=== PATIENT | male | born 1970 | race Caucasian/White ===

== ENCOUNTER 2022-09-02 10:15 | Outpatient (RCR) | payer OTHER, SELFPAY ==
[2022-08-27 10:44] VITALS: BP 102/64; PULSE 76; TEMP 37
[2022-08-27 10:48] VITALS: BMI 34.4
--- NOTE | 2022-08-27 11:51 | HO.PS.ADMBH ---
[facility] Date of Service: 08/27/22 Chief Complaint: MDD,PTSD Sources of Information: patient interviewed, chart reviewed and crisis/core team assessment reviewed Additional Sources of Information: [facility] paperwork reviewed [facility] Medical Problems Affecting Mental Status: No Narrative: Patient is a 51-year-old male, referred to partial hospitalization program as a step-down from the [facility] PTSD unit. History of depression, anxiety, PTSD. 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 Has also been experiencing passive SI, without a plan or intent. Recently completed 6 week inpatient program on PTSD unit in [place]. He had presented as [facility], requesting admission for increased depression and anxiety since July of 2021. He had reported that he had lost his job, and had experienced exacerbation of PTSD symptoms. At the time he had been questioning as to whether other people would be better off without him. Has no plan or intent to act on this. After completion of 6 week program at the [facility], it was recommended he participate in a partial hospitalization program for further stabilization in the community. Continues with passive SI. Continues struggling with symptoms of depression and PTSD including anhedonia, feeling hopeless and helpless, poor self-esteem, poor concentration, excessive sleep, flashbacks, intrusive thoughts, low frustration tolerance, angry outbursts at times. Currently taking anger management classes, is on wait list with spouse for couples counseling. Has providers through the [facility] at this time. Past Psychiatric History: Recent inpatient [facility] PTSD unit. No prior treatment before inpatient stay. Has new outpatient providers through [facility] in [place]. Medical Evaluation Reviewed: Yes [facility] Medical History Deviated septum GERD (gastroesophageal reflux disease) Hemangioma of intracranial structures Hyperlipidemia Motor tic disorder ABDON (obstructive sleep apnea) Type II diabetes mellitus Family History: Maternal nephew: Bipolar disorder. Brother: Completed suicide 25 years ago. Social History: Raised by mother, 4 siblings. Completed GED, joined [employer] age 17. First unexpectedly, patient raised two young children. Became engaged, fiancee . Currently , has 2 children ages 10 and 8 years old with . Some marital issues, patient splits time between his home and his mother's home. Substance History: Occasional cannabis, occasional alcohol Trauma History: Combat/War, emotional. Trauma from recovering bodies while in [employer]. Diagnostics Vital Signs (24Hr): Vital Signs - 24 hr 08/27/22 10:44 Temperature 98.6 F Pulse Rate 76 Blood Pressure 102/64 BMI result Body Mass Index 34.4 Meds/Allergies Meds Home Medications Medication Instructions Recorded Confirmed Type acetaminophen 500 mg tablet 1,000 mg PO TID PRN Pain 08/29/22 08/29/22 History atorvastatin 40 mg tablet 20 mg PO BEDTIME 08/29/22 08/29/22 History famotidine 20 mg tablet 20 mg PO BID 08/29/22 08/29/22 History fluticasone propionate 50 2 spray intranasal DAILY 08/29/22 08/29/22 History mcg/actuation nasal spray,suspension guanfacine 1 mg tablet,extended 1 mg PO BID 08/29/22 08/29/22 History release 24 hr (Intuniv ER) hydroxyzine HCl 25 mg tablet 25 mg PO BID PRN Anxiety 08/29/22 08/29/22 History metformin 500 mg tablet 500 mg PO BIDWMEAL 08/29/22 08/29/22 History venlafaxine 75 mg tablet 225 mg PO DAILY 08/29/22 08/29/22 History Allergies Allergies Allergy/AdvReac Type Severity Reaction Status Date / Time seafood Allergy Swelling Verified 08/27/22 10:42 mouth. Mental Status Exam Mental Status Exam Narrative: Well-developed, overweight male, NAD. Patient Appearance: Well Grooomed Patient Orientation: Person, Place, Time and Situation Level of Consciousness: Appropriate Patient Behavior: Appropriate, Cooperative and Good Eye Contact Mood Description: Depressed and Anxious Affect Description: Depressed and Anxious Patient Cognition Impaired: No Ability to Follow Directions: Excellent Speech Pattern: Clear Memory Description: Intact Hallucinations: None Delusions: Not Present Thought Process: Intact Thought Content: positive for Intact and positive for Suicidal Ideation (Passive, no intent or plan) Depressive Symptoms: Increased Anxiety, Diff. Making Decisions, Increased Irritability, Difficulty Sleeping, Loss of Int. in Activity, Feelings of Worthlessness, Isolating-Friends/Family, Feelings of Guilt, Unhappiness, Increased Fatigue, Thoughts of /Suicide, Low Self Esteem, Loss of Energy and Difficulty Concentrating Judgement: Fair Assessment & Plan Assessment & Plan (1) Major depressive disorder, single episode, unspecified: Status: Acute Code(s): F32.9 - Major depressive disorder, single episode, unspecified Assessment and Plan: Patient presents as a step-down from inpatient level of care at the [facility] PTSD unit, where he was admitted for 6 weeks due to exacerbation of depression and PTSD symptoms. [facility] a [facility] the [facility], complaining of increasing symptoms since July of 2021. Reports precipitants of job loss, marital difficulties. Describes symptoms including anhedonia, feeling hopeless and helpless, fatigue, difficulty with sleep, nightmares, intrusive memories, flashbacks, exaggerated startle response. Also reports some OCD type behaviors, counting numbers when he feels anxious. Found the 6 week program at the [facility] extremely helpful. However continues with some symptoms, looks forward to participating in groups here to focus on coping skills, as he integrates back into the community. He continues with passive SI, however has no intent or plan to act on this in any way. He reports that he feels safe. He reports that he continues to have angry outbursts at home, adding to marital conflict. He has never harmed anyone physically, but he lashes out verbally when aggravated. He and his are on a wait list for couples counseling. He is also engaged in anger management classes. He has begun working with an outpatient psychiatrist and therapist through the [facility], and is satisfied with current medication regimen. (2) Post-traumatic stress disorder, chronic: Status: Acute Code(s): F43.12 - Post-traumatic stress disorder, chronic Plan 1. Continue with current [facility] plan of care. 2. Continue with medications as prescribed by outpatient providers. 3. Follow-up as per protocol. Patient educated on: diagnosis, medication risk/benefits and therapeutic strategies Informed Consent: understands Reason for continued partial hosp. stay Substantial Risk for: harm to self, inability to function, rapid decompensation and med/psych decompensation Certification I certify that partial hospital treatment is medically necessary due to the symptoms and problems resulting from the patient's mental illness and the failure to treat the patient at the partial hospital level of care would likely result in the patient requiring inpatient psychiatric care which could not be prevented at a less intensive level of care. Time Spent With Patient Time: Total time managing care of this patient today __60__ minutes.
--- NOTE | 2022-08-27 13:18 | PC.ADMIT ---
Patient is a 51 year old male who was referred to PHP by the [facility] d/t increase in sxs of depression, PTSD, and anxiety sxs. [facility]. Patient reports he is having marital problems, reports stress at home and is having difficulty communicating with his . He reports as a result he spends a few days a week with his mother to separate himself from the situation at home. He reports he feels displaced and does not know where he fits in. He reports he has 2 children ages 8 and 10 years old. Patient stated he stopped working over a year ago and went on disability. 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 Difficulty adjusting to not being able to work. Reports financial issues. Patient is alert and oriented x4. Calm and cooperative. Presented with depressed mood and anxious affect. Patient reports passive SI, no plan or intent. Reviewed patient's safety plan with him and gave him a copy if needed. Medications reconciled with patient, In Paperwork and pharmacy. He reports taking medications as prescribed.
--- NOTE | 2022-08-27 13:20 | PC.NURSE ---
Awaiting [facility] pharmacy in [place] to call me back or fax patient's medicaiton list to complete reconciliation of patient's medications as he reports medication changes.
--- NOTE | 2022-08-28 15:21 | HO.PHP ---
The clients case was reviewed and opened in clinincal team
--- NOTE | 2022-09-01 10:13 | P.PNPSP_ITS ---
Subjective Subjective Date of Service: 09/01/22 Reason For Visit: MDD,PTSD Interim History: Continues with depressed, anxious mood. Reports increased stress at home, marital difficulties. Has been arguing with . Denies SI, sleep is okay, appetite okay. Taking medications as prescribed. Medication Compliance: Yes Side effects from medications: No Attending Groups: Yes Review of Systems Acute medical concerns: No Medical Review of Systems: unchanged Review of Systems Review of Systems Yes all other systems are reviewed and are negative Constitutional: Reports no additional constitutional complaints Mental Status Exam Mental Status Exam Narrative: NAD. Patient Appearance: Well Grooomed Patient Orientation: Person, Place, Time and Situation Level of Consciousness: Appropriate Patient Behavior: Appropriate, Cooperative and Good Eye Contact Mood Description: Depressed and Anxious Affect Description: Depressed and Anxious Patient Cognition Impaired: No Ability to Follow Directions: Excellent Speech Pattern: Clear Memory Description: Intact Hallucinations: None Delusions: Not Present Thought Process: Intact Thought Content: positive for Intact Depressive Symptoms: Increased Anxiety, Diff. Making Decisions, Increased Irritability, Loss of Int. in Activity, Feelings of Worthlessness, Isolating- Friends/Family, Feelings of Guilt, Unhappiness, Increased Fatigue, Thoughts of /Suicide, Loss of Energy and Difficulty Concentrating Judgement: Fair Diagnostics Vital Signs (24Hr): BMI result Body Mass Index 34.4 Assessment & Plan Assessment & Plan (1) Major depressive disorder, single episode, unspecified: Status: Acute Code(s): F32.9 - Major depressive disorder, single episode, unspecified Assessment and Plan: Patient continues with depressed mood and affect. Denies SI, no safety concerns. Continues PTSD symptoms including irritability, hypervigilance/hyperarousal. Considering going to the [facility] to be assessed for readmission to their hospital. Although he feels safe, he feels he is getting more depressed. He also plans to contact his prescriber, as he wishes to increase his p.r.n. Vistaril. Otherwise no concerns regarding medications. Patient has been spending weekdays at his home with and children, Anna is weekends with his elderly mother in [facility]. Reports he and his have increasingly been having large verbal arguments, and he is finding it more and more difficult to be at home. Participating in groups, finding them somewhat helpful. (2) Post-traumatic stress disorder, chronic: Status: Acute Code(s): F43.12 - Post-traumatic stress disorder, chronic Plan 1. Continue with current [facility] plan of care. 2. Patient considering a dose increase of hydroxyzine, no medication changes made during this visit. 3. Patient considering self presenting to [facility] in [facility] for possible inpatient admit, although he denies SI, feels safe from harm of self or others. 4. Follow-up as per protocol. Patient educated on: diagnosis, medication risk/benefits and therapeutic strategies Informed Consent: understands Reason for contiued partial hosp. stay Substantial Risk for: harm to self, inability to function and rapid decompensation Certification I certify that partial hospital treatment is medically necessary due to the symptoms and problems resulting from the patient's mental illness and the failure to treat the patient at the partial hospital level of care would likely result in the patient requiring inpatient psychiatric care which could not be prevented at a less intensive level of care. Total time managing care of this patient today _20___ minutes. Discharge Plan Discharge Attending provider: Pratik Evans Medications: No Action atorvastatin 40 mg Tablet 20 mg PO BEDTIME metformin 500 mg Tablet 500 mg PO BIDWMEAL venlafaxine 75 mg Tablet 225 mg PO DAILY Rx Instructions: 3 tabs daily. acetaminophen 500 mg Tablet 1,000 mg PO TID PRN (Reason: Pain) famotidine 20 mg Tablet 20 mg PO BID hydroxyzine HCl 25 mg Tablet 25 mg PO BID PRN (Reason: Anxiety) fluticasone propionate 50 mcg/actuation [place],Suspension 2 spray INTRANASAL DAILY Rx Instructions: administer into each nostril guanfacine [Intuniv ER] 1 mg Tablet Extended Release 24 Hr 1 mg PO BID
== END 2022-09-02 23:59 | disposition home or self-care (01) ==
LOC: HO.PHPA 10:15
PROVIDERS: Visit Provider Psychiatry & Neurology Psychiatry
DX: F43.12 Post-traumatic stress disorder, chronic (principal); F32.9 Major depressive disorder, single episode, unspecified
CPT/HCPCS: 90791; 90853